=== PATIENT | female | born 1970 | race Caucasian/White ===

== ENCOUNTER → 2024-05-21 13:10 | Outpatient (REF) | payer BC, SELFPAY | LOC: HWRAD 13:10 | PROVIDERS: ATTENDING PHYSICIAN Emergency Medicine; REFERRING PHYSICIAN Obstetrics & Gynecology | DX: Z12.31 Encounter for screening mammogram for malignant neoplasm of breast (principal); M85.80 Other specified disorders of bone density and structure, unspecified site | CPT/HCPCS: 77063; 77067; 77080 ==

== ENCOUNTER 2024-07-16 06:20 | Day surgery (SDC) | payer BC, SELFPAY ==
[2024-07-09 08:55] LABS: % Basophils 1.1 % (0-2); % Eosinophils 2.9 % (0-6); % Immature Granulocytes 0.2 % (0-0.5); % Lymphocytes 37.9 % (20.5-51.1); % Monocytes 8.5 % (1.7-9.3); % Neutrophils 49.4 % (42.2-75.2); Absolute Basophils 0.1 10^3/uL (0-0.2); Absolute Eosinophils 0.2 10^3/uL (0-0.7); Absolute Lymphocytes 2.5 10^3/uL (1.2-3.4); Absolute Monocytes 0.6 10^3/uL (0.1-0.6); Absolute Neutrophils 3.2 10^3/uL (1.4-6.5); Hematocrit 39.5 % (37.0-47.0); Hemoglobin 13.1 g/dL (12.0-16.0); Mean Corp Hgb Conc. 33.2 g/dL (33.0-37.0); Mean Corpuscular Hgb 29.8 pg (27.0-31.0); Mean Corpuscular Volume 89.8 fL (81.0-99.0); Mean Platelet Volume 9.6 fL (7.4-10.4); Nucleated Red Blood Cells % 0 %; Platelet Count 286 10^3/uL (130-400); White Blood Cell Count 6.5 10^3/uL (4.8-10.8)
[2024-07-09 09:32] LABS: Blood Urea Nitrogen 17 mg/dl (7-17); Calcium 9.8 mg/dl (8.4-10.2); Carbon Dioxide 32 mmol/L (22-30); Chloride 104 mmol/L (98-107); Glucose 86 mg/dl (70-99); Potassium 4.8 mmol/L (3.5-5.1); Sodium 143 mmol/L (135-145); eGFR > 60.00
[2024-07-10 13:52] VITALS: BMI 26.0
[2024-07-16] VITALS (8 sets, daily range): BP systolic 90–115; BP diastolic 52–81; BMI 26.0
[2024-07-16] MEDS: NEURONTIN 300 MG PO (07:22)
[2024-07-16] MEDS: TYLENOL 1000 MG PO (07:22)
[2024-07-16] MEDS: NORMOSOL-R/PLASMALYTE-A 1000 IV (07:28)
--- NOTE | 2024-07-16 10:15 | W.IMMPOSTOP ---
Surgical Immed Post Op Note
-
Primary Surgeon: Liseth Russo DO
Consulting Surgeon: Shaquille Mathews MD urogynecology.
Pre-op Diagnosis: MANJIT 2-3 high grade cervical dysplasia
Post-op Diagnosis: same
Procedure Performed: LEEP and ECC; repair of posterior vaginal laceration
Anesthesia Type: general LMA Dr. Lynne
Specimen / Cultures: 1.Leep cervical specimen suture at 12:00; 2. endocervical curettings
Estimated Blood Loss: 10ml
Complications: laceration of posterior vaginal wall-repaired
Operative Findings: Cervix with AW uptake 2:00 and also 6:00 close to junction with vagina.
Posterior cervix is flush with vaginal wall. Incidental laceration of posterior vaginal wall -rectovaginal septum intact.
Rectum intact. No evidence of thermal injury.
Counts correct times 2.
== END 2024-07-16 11:56 | disposition home or self-care (01) ==
LOC: SDS 06:20
PROVIDERS: ATTENDING PHYSICIAN Obstetrics & Gynecology; FAMILY PHYSICIAN Emergency Medicine
DX: D06.9 Carcinoma in situ of cervix, unspecified (principal); N99.71 Accidental puncture and laceration of a genitourinary system organ or structure during a genitourinary system procedure; Y83.8 Other surgical procedures as the cause of abnormal reaction of the patient, or of later complication, without mention of misadventure at the time of the procedure
CPT/HCPCS: 57522; 57200; 88305; 88307; 36415; 80048; 85025; 86850; 86900; 86901; 93005; C1713

== ENCOUNTER 2024-12-24 06:18 | Day surgery (SDC) | payer BC, SELFPAY ==
[2024-12-20 08:51] LABS: Hematocrit 39.2 % (37.0-47.0); Hemoglobin 13.2 g/dL (12.0-16.0); Mean Corp Hgb Conc. 33.7 g/dL (33.0-37.0); Mean Corpuscular Volume 89.7 fL (81.0-99.0); Platelet Count 275 10^3/uL (130-400); Red Cell Dist. Width 14.0 % (11.5-14.5)
[2024-12-20 12:08] LABS: Blood Urea Nitrogen 24 mg/dl (7-17); Calcium 9.6 mg/dl (8.4-10.2); Carbon Dioxide 26 mmol/L (22-30); Chloride 105 mmol/L (98-107); Glucose 89 mg/dl (70-99); Potassium 4.6 mmol/L (3.5-5.1); Sodium 139 mmol/L (135-145); eGFR > 60.00
[2024-12-20 16:24] VITALS: BMI 28.8
[2024-12-24] VITALS (13 sets, daily range): BP systolic 78–132; BP diastolic 40–73; BMI 28.8
[2024-12-24] MEDS: NORMOSOL-R/PLASMALYTE-A 1000 IV ×2 (09:00→18:39)
[2024-12-24] MEDS: HEPARIN 5000 UNITS SC (09:17)
--- NOTE | 2024-12-24 15:17 | W.IMMPOSTOP ---
Surgical Immed Post Op Note
-
Primary Surgeon: Hemal Reaves MD
Assisting Surgeon: MAICOL Yuen
Pre-op Diagnosis: Endometriosis, intra-abdominal adhesions
Post-op Diagnosis: Endometriosis, intra-abdominal adhesions
Procedure Performed: Diagnostic laparoscopy, flexible sigmoidoscopy
Anesthesia Type: General
Specimen / Cultures: None
Estimated Blood Loss: Per Dr. Mathews's note
Complications: None
Operative Findings: Evaluated colon from descending to rectum and no bowel injury noted; performed flexible sigmoidoscopy with saline in the pelvis and no bubbling; no full-thickness injuries noted on flexible sigmoidoscopy
--- NOTE | 2024-12-24 15:21 | OR.RPT ---
Operative Report
Operative Report
DATE OF OPERATION: 12/24/2024
SURGEON: Hemal Reaves MD
PREOPERATIVE DIAGNOSIS: Endometriosis, cystocele, rectocele, intra-abdominal adhesions
POSTOPERATIVE DIAGNOSIS: Endometriosis, cystocele, rectocele, intra-abdominal adhesions
OPERATION: Diagnostic laparoscopy, flexible sigmoidoscopy
ASSISTANTS:
1. MAICOL Davis
ANESTHESIA: General
ESTIMATED BLOOD LOSS: 0 mL for my portion
FINDINGS:
1. No colonic injuries noted from the rectum to distal descending colon
2. Negative leak test; no full-thickness injury seen on flexible sigmoidoscopy
SPECIMENS:
1. None for my portion
DRAINS: None
COMPLICATIONS: No immediate complications.
INDICATIONS: The patient is a 54-year-old female who was brought to the OR by Dr. Mathews for her cystocele and rectocele. She has a history of endometriosis as well as multiple abdominal surgeries. During the surgery, he encountered extensive
adhesions to the sigmoid colon and rectum requiring lengthy lysis of adhesions. He consulted me intraoperatively to evaluate the bowel and perform flexible sigmoidoscopy to rule out any injury to the colon or rectum.
PROCEDURE IN DETAIL: Upon arriving, the patient was already intubated in steep Trendelenburg with the robot docked and a vaginal retractor in place. I took the console controls and evaluated the operative field. The sigmoid colon was mobilized
from its lateral attachments up to the proximal sigmoid colon. The rectum was mobilized from its anterior attachments to the pelvis and vagina. I evaluated the bowel meticulously from the distal rectum to the distal descending colon. There were
no bowel injuries seen. The small bowel was retracted cephalad into the upper abdomen. Dr. Mathews confirmed that there were no adhesions to the small bowel or further up on the descending colon, so no adhesiolysis was down in these locations.
Therefore, I did not run the small bowel or run the colon beyond the descending colon.
To rule out an occult injury of the lower rectum, saline was filled into the pelvis. I performed a flexible sigmoidoscopy. I inserted the lubricated sigmoidoscope into the anus and advanced under direct visualization. There was some solid stool
in the rectum and distal sigmoid, but only a small amount. The anterior half of the rectum and sigmoid was easily visualized. I advanced the sigmoidoscope up to the mid sigmoid colon, confirmed on laparoscopy. I slowly withdrew, evaluating the
mucosa. I did not visualize any full-thickness injuries. Additionally, there was no bubbling from the anterior rectum. I desufflated the colon and rectum and withdrew the sigmoidoscope.
At this point, I did not suspect there was any injury to the colon or rectum. Dr. Mathews took over the controls and continued the surgery, as dictated by him. The patient tolerated my portion of the surgery well. No additional instruments were
used on my account. Please refer to Dr. Mathews's note regarding needle, sponge and instrument counts.
Of note, Sherri MILIAN, resident programs assistant, was necessary during this procedure for traction, countertraction, and exploratory purposes. I was present for the entire duration of my portion of the case.
DICTATED BY: Hemal Reaves MD
[2024-12-24 16:45] LABS: Hematocrit 33.8 % (37.0-47.0); Hemoglobin 11.6 g/dL (12.0-16.0)
[2024-12-24] MEDS: ZOFRAN 4 MG IV (17:42)
--- NOTE | 2024-12-24 18:20 | PTCARENOTE ---
Pt received from the PACU via bed. Transport was w/o incident. Pt is AAOx3, Pt denies nausea and reports pain as 'mild' at this time. Pt w/ abd lap sites C/D/I, MARGUERITE, no drainage at lap sites noted. Pt w/ scant amount of bloody vaginal discharge to
be expected post surgery. VSS, Pt is afebrile. Pt instructed on plan of care. Pt verbalized understanding of instructions. Call [facility] is within reach.
[2024-12-24] MEDS: TORADOL IV (18:40)
[2024-12-24] MEDS: LOVENOX 40 MG SC (18:40)
[2024-12-24] MEDS: DILAUDID 0.5 MG IV (20:31)
[2024-12-24] MEDS: COMPAZINE 10 MG IV (20:34)
[2024-12-24] MEDS: TORADOL 15 MG IV (22:19)
[2024-12-25] MEDS: NORMOSOL-R/PLASMALYTE-A 1000 IV (02:52)
[2024-12-25] MEDS: MYLICON 80 MG PO (03:04)
[2024-12-25 03:09] VITALS: BP 106/58
[2024-12-25] MEDS: TYLENOL 650 MG PO ×2 (04:37→09:29)
[2024-12-25] MEDS: TORADOL 15 MG IV (04:38)
--- NOTE | 2024-12-25 07:26 | W.PN.GYN ---
Today's Communication / Plan
-
1. awaiting blood work
2. advance to regular diet
3. d/c home
Physician Note
-
Assessment and Plan:
54 yo woman POD 1 s/p Robotic TLH, right salpinectomy, posterior repair, KEYSHAWN, cystoscopy: doing well and meeting postoperative milestones.
1. Postoperative care
-transition to po pain medications
-Ambulate, scds and lovenox ppx
-advance to regular diet
-CBC: pending (POD0 hgb 11.6)
-BMP: pending
-UOP: adequate
-TOV: patient voided, normal PVR
2. Dispo
-patient needs to tolerate diet and ambulate in hallway
-then plan for d/c home
Subjective:
pain improving overnight. nausea resolved. denies emesis, tolerating clears, passing flatus, light vaginal bleeding
denies chest pain, sob, fevers, chills.
Objective:
Intake and Output
12/23/24 12/24/24 12/25/24 12/26/24
06:59 06:59 06:59 06:59
Intake Total 2610 / 2610
Output Total 1475 / 1475 550 / 550
Balance 1135 / 1135 -550 / -550
Intake:
Oral fluids 960 / 960
IV fluids (Total) 1650 / 1650
normosol 150 / 150
Output:
Urine, Box 1475 / 1475
Urine, Voided 550 / 550
Vital Signs
Temp Pulse Resp BP Pulse Ox
98.1 F 74 16 106/58 100
12/25/24 03:09 12/25/24 03:09 12/25/24 03:09 12/25/24 03:09 12/25/24 03:09
Exam:
: spotting on pad, box removed
Abdomen: soft, nontender, nondistended
Incisions: clean, dry, intact
[2024-12-25 08:06] LABS: Blood Urea Nitrogen 10 mg/dl (7-17); Carbon Dioxide 27 mmol/L (22-30); Chloride 108 mmol/L (98-107); Estimated Creatinine Clearance 102 ml/min; Hematocrit 31.3 % (37.0-47.0); Hemoglobin 10.5 g/dL (12.0-16.0); Mean Corp Hgb Conc. 33.5 g/dL (33.0-37.0); Mean Corpuscular Volume 89.9 fL (81.0-99.0); Platelet Count 212 10^3/uL (130-400); Potassium 3.7 mmol/L (3.5-5.1); Red Cell Dist. Width 14.4 % (11.5-14.5); Sodium 139 mmol/L (135-145)
[2024-12-25 08:11] VITALS: BP 114/59
[2024-12-25] MEDS: NORMOSOL-R/PLASMALYTE-A IV (09:27)
--- NOTE | 2024-12-25 10:07 | CM ---
Cm reviewed medical records. Patient is otherwise independent. No needs noted.
PLAN: home with family, patient looking forward to discharge.
[2024-12-25] MEDS: TORADOL IV (11:38)
== END 2024-12-25 11:24 | disposition home or self-care (01) ==
LOC: SDS 06:18
PROVIDERS: ATTENDING PHYSICIAN Obstetrics & Gynecology; FAMILY PHYSICIAN Emergency Medicine
DX: N81.2 Incomplete uterovaginal prolapse (principal); N80.00 Endometriosis of the uterus, unspecified; K66.0 Peritoneal adhesions (postprocedural) (postinfection); N95.8 Other specified menopausal and perimenopausal disorders; N39.3 Stress incontinence (female) (male)
CPT/HCPCS: 57425; 58571; 57250; 45330; 36415; 80048; 80051; 82565; 84520; 85014; 85018; 85027; 86850; 86900; 86901; 88305; C1763